=== PATIENT | female | born 1955 | race Caucasian/White ===

== ENCOUNTER → 2017-02-17 | Outpatient (CLI) | payer MEDICARE, OTHER ==
--- NOTE | 2017-02-17 15:02 | RAD ---
SHOULDER 2+V LEFT Clinical Indication: LEFT SHOULDER PAIN, X 3-4 MONTHS, ARTHRITIS, NO SURGERY, NKI Comparison: None. Findings: No acute fracture or malalignment. The joint spaces are maintained. Bony mineralization is normal for the patient's age. No significant soft tissue abnormality. No radiopaque foreign body. IMPRESSION: No acute fracture or malalignment.
== END | disposition home or self-care (01) ==
LOC: DXRADRC 12:11
PROVIDERS: ATTEND Family Medicine
DX: M25.512 Pain in left shoulder (principal)
CPT/HCPCS: 73030

== ENCOUNTER → 2017-03-22 | Outpatient (CLI) | payer MEDICARE, OTHER ==
--- NOTE | 2017-03-22 16:35 | RAD ---
3 view left knee study Indications: Left knee pain. DJD. Findings: Mild degenerative spurring of the medial and lateral tibiofemoral joint compartments is seen without significant joint space narrowing. Mild degenerative spurring and joint space narrowing of the patellofemoral joint compartment is seen. Small left knee joint effusion is seen. No acute fracture or dislocation or osteolytic process is seen. IMPRESSION: Mild tricompartmental primary osteoarthritis of the left knee.
== END | disposition home or self-care (01) ==
LOC: RAD 12:04
PROVIDERS: ATTEND Family Medicine
DX: M17.12 Unilateral primary osteoarthritis, left knee (principal); M25.462 Effusion, left knee
CPT/HCPCS: 73562

== ENCOUNTER → 2019-07-24 | Outpatient (CLI) | payer MEDICARE, OTHER ==
[2019-07-24 14:36] LABS: ALBUMIN 3.7 g/dL (3.4-5.0); ALBUMIN/GLOBULIN RATIO 1.1 (1.0-1.7); CALCIUM 8.8 mg/dL (8.5-10.1); CREATININE 1.1 mg/dL (0.6-1.0); GFR 50.3; POTASSIUM 4.4 mmol/L (3.5-5.1); TOTAL BILIRUBIN 0.5 mg/dL (0.2-1.0); TOTAL PROTEIN 7.1 g/dL (6.4-8.2)
[2019-07-25 13:23] LABS: THYROID STIM HORMONE (TSH) 1.257 uIU/mL (0.358-3.740)
== END | disposition home or self-care (01) ==
LOC: LAB 11:50
PROVIDERS: ATTEND Family Medicine
DX: I10 Essential (primary) hypertension (principal); E78.5 Hyperlipidemia, unspecified; R53.83 Other fatigue; M17.12 Unilateral primary osteoarthritis, left knee; E55.9 Vitamin D deficiency, unspecified; M81.0 Age-related osteoporosis without current pathological fracture
CPT/HCPCS: 36415; 80053; 80061; 82306; 84443